=== PATIENT | male | born 1960 | race Caucasian/White ===

== ENCOUNTER → 2019-06-12 | Outpatient (CLI) | payer MEDICAID, MEDICARE, OTHER ==
--- NOTE | 2019-06-13 12:03 | ECHO ---
DATE OF PROCEDURE: 06/12/2019 DATE OF : 1960 AGE: 59 GENDER: Male HEIGHT: 70 inches WEIGHT: 200 pounds BODY SURFACE AREA: 2.08 m2 OUTPATIENT REFERRING PHYSICIAN: Dr. Tad Rea INDICATION: Muscular dystrophy. MEASUREMENTS: 2-D Measurements: RV: 3.3 cm LV: 4.9 cm Septum: 1.1 cm Posterior wall: 1.0 cm Aortic root: 3.6 cm LA: 3.4 cm LVEF: 60-65% Doppler Measurements: AV: 1.7 m/s LVOT: 1.0 m/s LVOT diameter: 2.0 cm MV - E: 88, A: 60, EA ratio: 1.4 Early mitral deceleration time: 218 ms E prime medial: 9.9, A prime medial: 8.5, E prime lateral: 11.6 Average E/E prime ratio: 8.2 PV: 0.8 m/s Pulmonary artery acceleration time: 127 ms RVSP: 27 mmHg IVC: 1.4 cm COMMENTS: Normal sinus rhythm without intraventricular conduction disturbance. M-mode and two-dimensional echocardiography was performed with pulsed, continuous wave, color flow and tissue Doppler studies. Normal left ventricular size, wall thickness and wall motion. Normal left atrial size and Doppler assessment of LV diastolic function and estimated mean left atrial pressure. Normal right heart chamber sizes and motion and estimated pulmonary arterial pressure. Normal IVC size and collapse against an elevated central venous pressure. Normal -appearing and functioning valvular structures. Normal diameters of the aortic root and ascending aorta. No apparent intracardiac mass or pericardial effusion. MTDD
== END ==
LOC: M CARPUL 10:17
PROVIDERS: ATTEND Family Medicine
DX: G71.01 Duchenne or Becker muscular dystrophy (principal)

== ENCOUNTER 2021-07-09 17:03 | Inpatient (IN) | payer MEDICARE, OTHER, SELFPAY ==
[~2021-07-09] VITALS: Ht 180.3 cm; Wt 74.9 kg
[2021-07-09] MEDS ORDERED: MORPHINE 4 MG/ML 1ML VIAL/SYRINGE (J2270) IV ONE (21:00)
[2021-07-09] MEDS ORDERED: NS 1,000 ML IV ONE ×2 (21:00→23:55)
[2021-07-09 21:42] LABS: BASO % 0.3 % (0.0-1.0); EOS # 0.1 10^3/uL (0.0-0.5); EOS % 0.6 % (0.0-3.0); HEMATOCRIT 34.5 % (42.0-52.0); HEMOGLOBIN 11.2 g/dl (13.5-17.5); LYMPH # 2.2 10^3/uL (1.5-5.0); LYMPH % 17.3 % (24.0-44.0); MEAN CORPUSCULAR HEMOGLOBIN 27.8 pg (27.0-33.0); MEAN CORPUSCULAR HGB CONC 32.5 g/dl (32.0-36.5); MEAN CORPUSCULAR VOLUME 85.6 fl (80.0-96.0); MONO % 8.1 % (2.0-8.0); NEUTROPHILS % 72.2 % (36.0-66.0); PLATELET COUNT, AUTOMATED 499 10^3/uL (150-450); RED BLOOD COUNT 4.03 10^6/uL (4.30-6.10); WHITE BLOOD COUNT 12.4 10^3/uL (4.0-10.0)
[2021-07-09] MEDS ORDERED: KETOROLAC 30 MG/ML 1ML VIAL IV ONE (21:45)
[2021-07-09] MEDS ORDERED: SIMV40TA20 PO (22:01)
[2021-07-09] MEDS ORDERED: OMEP-173 PO (22:03)
[2021-07-09] MEDS ORDERED: TERA10CA3 PO (22:03)
[2021-07-09] MEDS ORDERED: METF-839 PO (22:04)
[2021-07-09] MEDS ORDERED: TAMS1CAP17 PO (22:06)
[2021-07-09 22:09] LABS: ALBUMIN 2.5 GM/DL (3.2-5.2); BILIRUBIN,DIRECT 0.1 MG/DL (0.0-0.2); BILIRUBIN,TOTAL 0.2 MG/DL (0.2-1.0); C REACTIVE PROTEIN QUANTITATIV 14.2 MG/DL (0.00-0.30); ERYTHROCYTE SEDIMENTATION RATE 74 mm/hr (0-20); TOTAL PROTEIN 6.7 GM/DL (6.4-8.2)
[2021-07-09] MEDS ORDERED: baclofen (22:09)
[2021-07-09] MEDS ORDERED: ISOVUE-370 76% 100ML VIAL As Ordered ONE (22:20)
[2021-07-09] MEDS ORDERED: PIPERACILLIN/TAZOBACTAM SOD 3.375 GM in D5W MINI-BAG PLUS 50 ML IV ONE (23:55)
[2021-07-10] MEDS ORDERED: [UNRECOGNIZED DRUG - CODE] PO (01:33)
[2021-07-10] MEDS ORDERED: METF-838 PO (01:33)
[2021-07-10] MEDS ORDERED: KETO2CR EXT (01:33)
[2021-07-10] MEDS ORDERED: IBUP-1720 PO (01:33)
[2021-07-10] MEDS ORDERED: [UNRECOGNIZED DRUG - CODE] TOP (01:33)
[2021-07-10] MEDS ORDERED: ZOLO100T PO (01:33)
[2021-07-10] MEDS ORDERED: BACL10TA2 PO (01:33)
[2021-07-10] MEDS ORDERED: MECL-86 PO (01:33)
[2021-07-10] MEDS ORDERED: HOME MED LIST COMPLETE! XX SCH (01:35)
[2021-07-10] MEDS ORDERED: GLUCOSE 4GM CHEW TABLET PO PRN (01:45)
[2021-07-10] MEDS ORDERED: D5W/0.9% SODIUM CHLORIDE 1,000 ML IV SCH (01:45)
[2021-07-10] MEDS ORDERED: GLUCAGON INJ 1MG VIAL SC PRN (01:45)
[2021-07-10] MEDS ORDERED: DEXTROSE 50% 50 ML SYRINGE IV PRN (01:45)
[2021-07-10] MEDS ORDERED: ONDANSETRON 4MG/2ML VIAL IV PRN (01:45)
[2021-07-10] MEDS ORDERED: OMEPRAZOLE 20MG CAP PO ONE (03:00)
[2021-07-10] MEDS: MORPHINE 4 MG/ML 1ML VIAL/SYRINGE (J2270) IV PRN ×2 (03:08→07:35)
[2021-07-10 03:33] VITALS: BP 123/74
[2021-07-10] MEDS: SERTRALINE 100 MG TAB PO SCH ×2 (04:29→20:16)
[2021-07-10] MEDS: TAMSULOSIN 0.4 MG CAP PO SCH ×2 (04:29→20:16)
[2021-07-10] MEDS: PIPERACILLIN/TAZOBACTAM SOD 3.375 GM in D5W MINI-BAG PLUS 50 ML IV SCH ×4 (05:02→23:15)
[2021-07-10] MEDS ORDERED: HumaLOG INSULIN (NovoLOG) PER UNIT SC SCH (06:00)
[2021-07-10] MEDS: DOCUSATE SODIUM 100MG CAPSULE PO SCH ×2 (07:35→20:16)
[2021-07-10] MEDS ORDERED: KETOROLAC 30 MG/ML 1ML VIAL IV ONE (08:45)
[2021-07-10] MEDS ORDERED: LIDOCAINE 1% MDV 20ML VIAL As Ordered ONE (08:59)
[2021-07-10 09:50] LABS: BASO # 0.1 10^3/uL (0.0-0.2); BASO % 0.4 % (0.0-1.0); EOS # 0.1 10^3/uL (0.0-0.5); EOS % 0.4 % (0.0-3.0); HEMATOCRIT 32.1 % (42.0-52.0); HEMOGLOBIN 10.5 g/dl (13.5-17.5); LYMPH # 1.2 10^3/uL (1.5-5.0); LYMPH % 8.4 % (24.0-44.0); MEAN CORPUSCULAR HEMOGLOBIN 27.9 pg (27.0-33.0); MEAN CORPUSCULAR HGB CONC 32.7 g/dl (32.0-36.5); MEAN CORPUSCULAR VOLUME 85.4 fl (80.0-96.0); MONO # 1.1 10^3/uL (0.0-0.8); MONO % 7.4 % (2.0-8.0); NEUTROPHILS # 11.7 10^3/uL (1.5-8.5); NEUTROPHILS % 82.2 % (36.0-66.0); PLATELET COUNT, AUTOMATED 472 10^3/uL (150-450); RED BLOOD COUNT 3.76 10^6/uL (4.30-6.10); WHITE BLOOD COUNT 14.2 10^3/uL (4.0-10.0)
[2021-07-10 10:05] LABS: INR 1.11; PROTHROMBIN TIME 14.7 SECONDS (12.7-14.5)
[2021-07-10 10:06] LABS: PARTIAL THROMBOPLASTIN TIME 37.3 SECONDS (25.9-37.0)
[2021-07-10 10:21] LABS: HEMOGLOBIN A1c 12.7 %
[2021-07-10 11:01] LABS: BLOOD UREA NITROGEN 13 MG/DL (7-18); CALCIUM LEVEL 8.8 MG/DL (8.5-10.1); CARBON DIOXIDE LEVEL 28 MEQ/L (21-32); CHLORIDE LEVEL 102 MEQ/L (98-107); CREATININE FOR GFR 0.71 MG/DL (0.70-1.30); GLOMERULAR FILTRATION RATE > 60.0 (>56); GLUCOSE, FASTING 222 MG/DL (70-100); POTASSIUM SERUM 3.1 MEQ/L (3.5-5.1); SODIUM LEVEL 135 MEQ/L (136-145)
[2021-07-10 14:00] VITALS: BP 99/56
[2021-07-10] MEDS: VANICREAM MOISTURIZING SKIN CREAM 113GM TUBE TOP SCH ×2 (14:58→20:18)
[2021-07-10] MEDS ORDERED: ACETAMINOPHEN TAB 650MG DOSE (2X325MG) PO PRN (17:00)
[2021-07-10] MEDS: ACETAMINOPHEN TAB 650MG DOSE (2X325MG) PO PRN (17:08)
[2021-07-10] MEDS ORDERED: POTASSIUM CHLORIDE 10MEQ SR TABLET PO ONE (18:35)
[2021-07-10 19:50] VITALS: BP 103/57
[2021-07-10] MEDS: BACLOFEN 10 MG TAB PO SCH (20:16)
[2021-07-10] MEDS: OMEPRAZOLE 20MG CAP PO SCH (20:17)
[2021-07-10] MEDS: SIMVASTATIN 40 MG TAB PO SCH (20:18)
[2021-07-10] MEDS: TERAZOSIN 5MG CAPSULE PO SCH (21:00)
[2021-07-11] MEDS ORDERED: VANCOMYCIN HCL 1,000 MG in IV FLUID PLACE HOLDER 1 EA IV ONE (01:45)
[2021-07-11] MEDS: VANCOMYCIN HCL 750 MG, VIAL MATE ADAPTER 1 EACH in NS 250 ML IV SCH ×2 (05:08→05:11)
[2021-07-11 06:14] LABS: HEMATOCRIT 28.2 % (42.0-52.0); HEMOGLOBIN 9.4 g/dl (13.5-17.5); MEAN CORPUSCULAR HGB CONC 33.3 g/dl (32.0-36.5); MEAN CORPUSCULAR VOLUME 83.9 fl (80.0-96.0); PLATELET COUNT, AUTOMATED 402 10^3/uL (150-450); RED BLOOD COUNT 3.36 10^6/uL (4.30-6.10); WHITE BLOOD COUNT 8.6 10^3/uL (4.0-10.0)
[2021-07-11 06:40] VITALS: BP 126/70
[2021-07-11 06:41] LABS: BLOOD UREA NITROGEN 10 MG/DL (7-18); CALCIUM LEVEL 7.9 MG/DL (8.5-10.1); CARBON DIOXIDE LEVEL 27 MEQ/L (21-32); CHLORIDE LEVEL 104 MEQ/L (98-107); CREATININE FOR GFR 0.68 MG/DL (0.70-1.30); GLOMERULAR FILTRATION RATE > 60.0 (>56); GLUCOSE, FASTING 252 MG/DL (70-100); MAGNESIUM LEVEL 1.6 MG/DL (1.8-2.4); POTASSIUM SERUM 3.8 MEQ/L (3.5-5.1); SODIUM LEVEL 138 MEQ/L (136-145)
[2021-07-11] MEDS: PIPERACILLIN/TAZOBACTAM SOD 3.375 GM in D5W MINI-BAG PLUS 50 ML IV SCH ×4 (07:22→23:26)
[2021-07-11 08:30] LABS: C REACTIVE PROTEIN QUANTITATIV 9.82 MG/DL (0.00-0.30)
[2021-07-11 08:46] LABS: ERYTHROCYTE SEDIMENTATION RATE 63 mm/hr (0-20)
[2021-07-11] MEDS: DOCUSATE SODIUM 100MG CAPSULE PO SCH ×2 (09:30→20:08)
[2021-07-11] MEDS: VANICREAM MOISTURIZING SKIN CREAM 113GM TUBE TOP SCH ×2 (09:30→20:10)
[2021-07-11] MEDS: MAG SULF 1GM/100ML (MAG RUN) 1 GM in IV 1 EA IV SCH ×2 (09:31→11:10)
[2021-07-11] MEDS ORDERED: VANCOMYCIN HCL 1,000 MG, VIAL MATE ADAPTER 1 EACH in NS 250 ML IV SCH (10:00)
[2021-07-11] MEDS: VANCOMYCIN HCL 1,000 MG, VIAL MATE ADAPTER 1 EACH in NS 250 ML IV SCH ×2 (13:34→20:09)
[2021-07-11] MEDS: TAMSULOSIN 0.4 MG CAP PO SCH (20:07)
[2021-07-11] MEDS: SERTRALINE 100 MG TAB PO SCH (20:08)
[2021-07-11] MEDS: OMEPRAZOLE 20MG CAP PO SCH (20:08)
[2021-07-11] MEDS: SIMVASTATIN 40 MG TAB PO SCH (20:08)
[2021-07-11] MEDS: BACLOFEN 10 MG TAB PO SCH (20:08)
[2021-07-11 20:09] VITALS: BP 118/76
[2021-07-11] MEDS: TERAZOSIN 5MG CAPSULE PO SCH (20:09)
[2021-07-11] MEDS: ACETAMINOPHEN TAB 650MG DOSE (2X325MG) PO PRN (20:10)
[2021-07-11 22:00] VITALS: BP 118/76
[2021-07-12] MEDS: VANCOMYCIN HCL 1,000 MG, VIAL MATE ADAPTER 1 EACH in NS 250 ML IV SCH (04:00)
[2021-07-12 04:01] LABS: HEMATOCRIT 29.7 % (42.0-52.0); HEMOGLOBIN 9.7 g/dl (13.5-17.5); MEAN CORPUSCULAR HEMOGLOBIN 27.8 pg (27.0-33.0); MEAN CORPUSCULAR HGB CONC 32.7 g/dl (32.0-36.5); MEAN CORPUSCULAR VOLUME 85.1 fl (80.0-96.0); PLATELET COUNT, AUTOMATED 409 10^3/uL (150-450); RED BLOOD COUNT 3.49 10^6/uL (4.30-6.10); WHITE BLOOD COUNT 7.3 10^3/uL (4.0-10.0)
[2021-07-12 04:29] LABS: BLOOD UREA NITROGEN 5 MG/DL (7-18); CALCIUM LEVEL 7.8 MG/DL (8.5-10.1); CARBON DIOXIDE LEVEL 28 MEQ/L (21-32); CHLORIDE LEVEL 107 MEQ/L (98-107); GLOMERULAR FILTRATION RATE > 60.0 (>56); GLUCOSE, FASTING 349 MG/DL (70-100); POTASSIUM SERUM 3.4 MEQ/L (3.5-5.1); SODIUM LEVEL 139 MEQ/L (136-145); VANCOMYCIN LEVEL TROUGH 19.2 UG/ML (10.0-20.0)
[2021-07-12] MEDS: PIPERACILLIN/TAZOBACTAM SOD 3.375 GM in D5W MINI-BAG PLUS 50 ML IV SCH (05:44)
[2021-07-12 06:00] VITALS: BP 120/86
[2021-07-12] MEDS ORDERED: POTASSIUM CHLORIDE 10MEQ SR TABLET PO ONE (07:15)
[2021-07-12] MEDS: DOCUSATE SODIUM 100MG CAPSULE PO SCH (09:30)
[2021-07-12] MEDS: VANICREAM MOISTURIZING SKIN CREAM 113GM TUBE TOP SCH (09:30)
[2021-07-12] MEDS ORDERED: AMOX875T2 PO (10:26)
== END 2021-07-12 13:30 | disposition home health service (06) | DRG 556 ==
LOC: M ED 17:03 → M ED INP 17:04 → M MS5PR 07-10 03:25 → OBSVTOIN 07-11 14:34
PROVIDERS: ADMIT Family Medicine; ATTEND Internal Medicine
PROC: 0K9 Muscles, Drainage (ICD-10-PCS; principal; 2021-07-10 12:00)
DX: M79.81 Nontraumatic hematoma of soft tissue (principal); N39.0 Urinary tract infection, site not specified; G71.01 Duchenne or Becker muscular dystrophy; E78.5 Hyperlipidemia, unspecified; Z87.891 Personal history of nicotine dependence; Z79.899 Other long term (current) drug therapy; Z20.822 Contact with and (suspected) exposure to COVID-19; K21.9 Gastro-esophageal reflux disease without esophagitis; Z79.84 Long term (current) use of oral hypoglycemic drugs; I71.4 Abdominal aortic aneurysm, without rupture; N20.0 Calculus of kidney; K80.20 Calculus of gallbladder without cholecystitis without obstruction; K59.00 Constipation, unspecified; R20.0 Anesthesia of skin; M25.551 Pain in right hip; B95.2 Enterococcus as the cause of diseases classified elsewhere

== ENCOUNTER 2022-12-08 09:16 | Day surgery (SDC) | payer OTHER ==
[~2022-12-08] VITALS: Ht 175.3 cm; Wt 80.9 kg
[~2022-12-08 09:16] MED LIST: ALOG25TA PO; AMOX875T2 PO; BACL10TA2 PO; IBUP-1720 PO; KETO2CR EXT; MECL-86 PO; METF-838 PO; METF-839 PO; NOVOINJ3 SC; NS 1,000 ML IV ONE; OMEP-173 PO; SIMV40TA20 PO; TAMS1CAP17 PO; TERA10CA3 PO; TRAZ-252 PO; ZOLO100T PO; [UNRECOGNIZED DRUG - CODE] PO; [UNRECOGNIZED DRUG - CODE] TOP; baclofen
[2022-12-08] MEDS ORDERED: LIDOCAINE 2% 100MG/5ML SDV (FOR ANES.) As Ordered ONE (10:21)
[2022-12-08] MEDS ORDERED: propofoL 200 MG/20 ML VIAL As Ordered ONE ×2 (10:21→10:43)
[2022-12-08 10:43] VITALS: TEMP 97.3
[2022-12-08 10:55] VITALS: BP 116/64; O2SAT 99
== END 2022-12-08 10:55 | disposition home or self-care (01) ==
LOC: M OPP 09:16
PROVIDERS: ATTEND Surgery
DX: Z12.11 Encounter for screening for malignant neoplasm of colon (principal); D12.6 Benign neoplasm of colon, unspecified; K64.9 Unspecified hemorrhoids; K57.30 Diverticulosis of large intestine without perforation or abscess without bleeding; F17.200 Nicotine dependence, unspecified, uncomplicated; Z79.02 Long term (current) use of antithrombotics/antiplatelets; Z79.1 Long term (current) use of non-steroidal anti-inflammatories (NSAID); Z79.4 Long term (current) use of insulin; Z79.899 Other long term (current) drug therapy

== ENCOUNTER → 2023-04-13 | Outpatient (REF) | payer OTHER ==
[~2023-04-13] MED LIST changes: -NS 1,000 ML IV ONE
== END ==
LOC: M SFHCDERM 17:27
PROVIDERS: ATTEND Physician Assistant
DX: D48.9 Neoplasm of uncertain behavior, unspecified (principal)

== ENCOUNTER → 2023-05-30 | Outpatient (REF) | payer OTHER | LOC: M LAB REF 18:24 | PROVIDERS: ATTEND Surgery | DX: L72.3 Sebaceous cyst (principal) ==

== ENCOUNTER → 2023-06-08 | Outpatient (REF) | payer OTHER | LOC: M SFHCDERM 18:11 | PROVIDERS: ATTEND Physician Assistant | DX: D48.5 Neoplasm of uncertain behavior of skin (principal) ==

== ENCOUNTER → 2024-01-23 | Outpatient (CLI) | payer OTHER | LOC: M RAD 12:46 | PROVIDERS: ATTEND Registered Nurse | DX: M25.521 Pain in right elbow (principal); M77.11 Lateral epicondylitis, right elbow ==

== ENCOUNTER → 2024-02-28 | Outpatient (REF) | payer OTHER | LOC: M SFHCDERM 17:56 | PROVIDERS: ATTEND Physician Assistant | DX: D48.5 Neoplasm of uncertain behavior of skin (principal) | CPT/HCPCS: 11102; 17000; 17110; 88305; G0463 ==

== ENCOUNTER → 2024-11-22 | Outpatient (CLI) | payer OTHER | LOC: M RAD 15:38 | PROVIDERS: ATTEND Registered Nurse | DX: Z12.2 Encounter for screening for malignant neoplasm of respiratory organs (principal); Z87.891 Personal history of nicotine dependence; J47.9 Bronchiectasis, uncomplicated; R91.8 Other nonspecific abnormal finding of lung field; I70.0 Atherosclerosis of aorta; I25.10 Atherosclerotic heart disease of native coronary artery without angina pectoris; K80.20 Calculus of gallbladder without cholecystitis without obstruction; N28.1 Cyst of kidney, acquired; N20.0 Calculus of kidney; D35.02 Benign neoplasm of left adrenal gland; J43.9 Emphysema, unspecified ==